=== PATIENT | female | born 1935 | race Asian ===

== ENCOUNTER 2017-11-12 07:47 | Observation (INO) | payer MEDICARE ==
[~2017-11-12] VITALS: Ht 149.9 cm; Wt 65.8 kg
[~2017-11-12 07:47] MED LIST: AMLODIPINE BESY10 MG PO; ARICEPT5 MG PO; ASPIR 8181 MG PO; ATORVASTATIN CA20 MG PO; CALCIUM 500+D1 EACH; GLUCOPHAGE850 MG PO; HUMALOG MI100 UNIT/2 SQ; LEVOTHYROXINE75 MCG PO; LEXAPRO10 MG PO; LISINOPRIL10 MG PO; PLAVIX75 MG PO
[2017-11-12] MEDS ORDERED: SODIUM CHLORIDE 0.9% 1000ML 1,000 ML IV STA ×2 (08:29→10:48)
[2017-11-12 08:58] LABS: BASOPHILS % 0.5 % (0.0-1.0); EOSINOPHILS # (AUTO) 0.1 (0.0-0.4); EOSINOPHILS % 2.2 % (0.0-6.0); HEMATOCRIT 29.8 % (34.2-44.1); HEMOGLOBIN 9.8 g/dL (12.0-16.0); LYMPHOCYTES # (AUTO) 2.6 (1.0-3.2); MEAN CORPUSCULAR HEMOGLOBIN 29.4 pg (28-32); MEAN CORPUSCULAR HGB CONC 32.9 g/dL (31-35); MEAN CORPUSCULAR VOLUME 89.5 fL (81-99); MONOCYTES # (AUTO) 0.5 (0.2-0.8); NEUTROPHILS # (AUTO) 3.2 (2.1-6.9); PLATELET COUNT 199 x10e3/uL (140-360); RED BLOOD COUNT 3.33 x10e6/uL (3.6-5.1); RED CELL DISTRIBUTION WIDTH 13.4 % (11.7-14.4)
[2017-11-12 09:16] LABS: ALBUMIN 3.4 g/dL (3.5-5.0); ANION GAP 11.9 mmol/L (8-16); CALCIUM 9.1 mg/dL (8.4-10.2); CREATININE, SERUM 0.93 mg/dL (0.57-1.11); POTASSIUM 3.9 mmol/L (3.5-5.1)
[2017-11-12 09:23] LABS: CREATINE KINASE MB 1.1 ng/mL (0.00-5.00); TROPONIN I 0.032 ng/mL (0-0.300)
--- NOTE | 2017-11-12 10:09 | Diagnostic Imaging Report ---
History:Left-sided weakness Comparison studies:MRI brain, 12/27/2016 Technique: Axial images were obtained from the skull base to the vertex. Coronal and sagittal images reconstructed from the axial data. Intravenous contrast: None Findings: Scalp/skull: No abnormalities. Extra-axial spaces: No masses. No fluid collections. Brain sulci: Mildly prominent. Ventricles: Mild compensatory dilatation. No hydrocephalus. Parenchyma: A few scattered hypodensities in the supratentorial white matter are small vessel ischemic changes. No masses, hemorrhage, or acute or chronic cortical vascular insults. Sellar/suprasellar region: No abnormalities. Craniocervical junction: Patent foramen magnum. No Chiari one malformation. Incidental findings: Atherosclerotic calcifications in the carotid siphons . Impression: No acute abnormalities. No changes when compared to the brain MRI on 12/27/2016. Chronic findings: 1. Mild generalized volume loss. 2. Mild supratentorial white matter small vessel ischemic changes. Preliminary report provided by Dr. Hernandez on 11/09/2017 at 1050 hours. Signed by: Dr. Edmundo Mckeon M.D. on 11/12/2017 12:06 PM
[2017-11-12 10:50] LABS: BILIRUBIN,URINE NEGATIVE (NEGATIVE); KETONES,URINE NEGATIVE (NEGATIVE); LEUKOCYTE ESTERASE ,URINE 2+ (NEGATIVE); NITRITE,URINE NEGATIVE (NEGATIVE); URINE UROBILINOGEN 0.2 mg/dL (0.2 - 1)
[2017-11-12 10:52] LABS: CLARITY,URINE HAZY (CLEAR); COLOR,URINE YELLOW (YELLOW); PROTEIN,URINE DIPSTICK 2+ (NEGATIVE)
[2017-11-12 11:01] LABS: BACTERIA,URINE MANY /HPF; WBC,URINE (MAN) 21-50 /HPF (0-5)
[2017-11-12 11:02] LABS: EPITHELIAL CELLS,URINE MODERATE /LPF; MUCUS,URINE MODERATE (RARE)
[2017-11-12] MEDS ORDERED: DEXTROSE 50% SYRINGE 50 ML IV PRN (11:45)
[2017-11-12] MEDS ORDERED: ONDANSETRON HCL INJ 2 MG/ML VIAL IV PRN (11:45)
[2017-11-12] MEDS ORDERED: CEFTRIAXONE SOD 1 GM VIAL IV ONE (12:00)
[2017-11-12 14:52] VITALS: BP 134/62
[2017-11-12] MEDS: SODIUM CHLORIDE 0.9% 1000ML 1,000 ML IV SCH ×2 (15:00→23:51)
[2017-11-12] MEDS ORDERED: ASPIR 8181 MG PO (15:03)
[2017-11-12] MEDS ORDERED: LISINOPRIL10 MG PO (15:03)
[2017-11-12] MEDS ORDERED: [UNRECOGNIZED DRUG - OTHER] PO (15:03)
[2017-11-12 15:33] VITALS: BP_SYST 134; BP_SYST 145; BP_DIAS 62; BP_DIAS 65
[2017-11-12 15:36] VITALS: BP 145/65
[2017-11-12] MEDS: INSULIN REGULAR, HUMAN 100 UNIT/1 ML 3ML VIAL SQ SCH ×2 (15:57→21:00)
[2017-11-12 20:00] VITALS: BP 151/74
[2017-11-13] VITALS: BP 179/75
[2017-11-13 04:00] VITALS: BP 144/64
[2017-11-13] MEDS: LEVOTHYROXINE SODIUM 75 MCG TAB PO SCH (09:40)
[2017-11-13] MEDS: ESCITALOPRAM OXALATE 10 MG TAB PO SCH (09:52)
[2017-11-13] MEDS: AMLODIPINE BESYLATE 10 MG TAB PO SCH (09:52)
[2017-11-13] MEDS: CLOPIDOGREL BISULFATE 75 MG TAB PO SCH (09:52)
[2017-11-13] MEDS: ASPIRIN 81 MG CHEW TAB PO SCH (09:52)
[2017-11-13] MEDS: LISINOPRIL 10 MG TAB PO SCH (09:52)
[2017-11-13] MEDS: INSULIN LISPRO 100 UNIT/1 ML 3ML VIAL SQ SCH ×2 (09:53→12:00)
[2017-11-13] MEDS: INSULIN REGULAR, HUMAN 100 UNIT/1 ML 3ML VIAL SQ SCH ×4 (09:53→21:00)
--- NOTE | 2017-11-13 11:25 | History and Physical ---
PRIMARY CARE PHYSICIAN: Dr. Hedrick. CHIEF COMPLAINT: Low blood sugar. HISTORY OF PRESENT ILLNESS: An 82-year-old woman with a history of diabetes mellitus, now developing low blood sugar in the 40s and feeling fatigued with some vomiting and abdominal discomfort prompting a visit to the hospital. Here is found to have a glucose is the 74 range. She is admitted for further evaluation and management. She is also found to have a urinary tract infection. Antibiotics have been started. PAST MEDICAL HISTORY: Hypertension, diabetes mellitus type 2, stroke with residual left-sided weakness, urinary tract infection, coronary artery disease status post more than 1 stent more than 10 years ago, breast cancer status post bilateral mastectomy, hypothyroidism, depression and dementia. PAST SURGICAL HISTORY: Bilateral mastectomy, coronary stent placement, knee replacement. ALLERGIES: PER THE ELECTRONIC MEDICAL RECORDS. FAMILY HISTORY/SOCIAL HISTORY: Patient is . She has 4 children. No alcohol, illicit drugs or cigarettes. MEDICATIONS: Per the electronic medical records. Reviewed. REVIEW OF SYSTEMS: Denies any dizziness, chest pain. VITAL SIGNS: Have been reviewed. PHYSICAL EXAMINATION GENERAL APPEARANCE: A tired-appearing woman resting in bed. HEENT: Anicteric. Pupils responsive to light. No oral lesions. CARDIOVASCULAR: Normal S1/S2. LUNGS: Moderate breath sounds. ABDOMEN: Soft, nontender, nondistended. EXTREMITIES: No edema or calf tenderness. NEUROLOGICALLY: Alert and oriented x3. Moving all extremities. SKIN: Dry. LABS: Reviewed. ASSESSMENT AND PLAN: This is an 82-year-old woman. 1. Urinary tract infection. Continue ceftriaxone. Follow up cultures. 2. Normocytic anemia. Obtain anemia panel. 3. Hypothyroidism. Check TSH. Continue Synthroid. 4. Diabetes mellitus type 2. Obtain hemoglobin A1c and lipid panel. 5. Fatigue. Likely due to the urinary tract infection. Will reassess after treatment. 6. Dementia. Restart home medication. 7. Depression. Continue Lexapro. 8. Prophylaxis. Will use SCDs and Pepcid. 9. Disposition. Physical therapy consultation. Follow up cultures. Job#: [id number]
[2017-11-13] MEDS ORDERED: DEXTROSE 50% SYRINGE 50 ML IV ONE (11:59)
[2017-11-13] MEDS ORDERED: WATER STERILE 10 ML VIAL IV SCH (12:00)
[2017-11-13] MEDS ORDERED: CEFTRIAXONE SOD 1 GM VIAL IV SCH (12:00)
[2017-11-13] MEDS: SODIUM CHLORIDE 0.9% 1000ML 1,000 ML IV SCH (16:00)
[2017-11-13 16:37] VITALS: BP 138/62
[2017-11-13 20:00] VITALS: BP 173/74
[2017-11-13] MEDS ORDERED: LORAZEPAM 0.5 MG TAB PO PRN (20:45)
[2017-11-13] MEDS ORDERED: TRAZODONE HCL 50 MG TAB PO SCH (21:00)
[2017-11-13] MEDS ORDERED: DONEPEZIL HCL 5 MG TAB PO SCH (21:00)
[2017-11-13] MEDS ORDERED: MIRTAZAPINE 15 MG TAB PO SCH (21:00)
[2017-11-13] MEDS ORDERED: ATORVASTATIN 20 MG TAB PO SCH (21:00)
[2017-11-14] VITALS: BP 152/67
[2017-11-14] MEDS: SODIUM CHLORIDE 0.9% 1000ML 1,000 ML IV SCH (02:02)
[2017-11-14 04:00] VITALS: BP 156/65
[2017-11-14] MEDS ORDERED: KEFLEX500 MG PO (06:26)
[2017-11-14 07:27] VITALS: BP 177/81
[2017-11-14] MEDS: INSULIN REGULAR, HUMAN 100 UNIT/1 ML 3ML VIAL SQ SCH (07:30)
[2017-11-14 07:35] LABS: BASOPHILS % 0.5 % (0.0-1.0); EOSINOPHILS # (AUTO) 0.2 (0.0-0.4); EOSINOPHILS % 2.7 % (0.0-6.0); HEMOGLOBIN 10.4 g/dL (12.0-16.0); LYMPHOCYTES # (AUTO) 2.6 (1.0-3.2); LYMPHOCYTES % 41.2 % (18.0-39.1); MEAN CORPUSCULAR HEMOGLOBIN 28.7 pg (28-32); MEAN CORPUSCULAR HGB CONC 32.5 g/dL (31-35); MEAN CORPUSCULAR VOLUME 88.2 fL (81-99); MONOCYTES # (AUTO) 0.5 (0.2-0.8); MONOCYTES % 7.4 % (4.4-11.3); NEUTROPHILS # (AUTO) 3.1 (2.1-6.9); NEUTROPHILS % 47.7 % (38.7-80.0); PLATELET COUNT 198 x10e3/uL (140-360); RED BLOOD COUNT 3.63 x10e6/uL (3.6-5.1); RED CELL DISTRIBUTION WIDTH 13.4 % (11.7-14.4)
[2017-11-14 08:11] LABS: FERRITIN 62.9 ng/mL (4.63-204.00)
[2017-11-14] MEDS: ASPIRIN 81 MG CHEW TAB PO SCH (08:23)
[2017-11-14] MEDS: LEVOTHYROXINE SODIUM 75 MCG TAB PO SCH (08:23)
[2017-11-14] MEDS: LISINOPRIL 10 MG TAB PO SCH (08:23)
[2017-11-14] MEDS: AMLODIPINE BESYLATE 10 MG TAB PO SCH (08:23)
[2017-11-14] MEDS: ESCITALOPRAM OXALATE 10 MG TAB PO SCH (08:23)
[2017-11-14] MEDS: CLOPIDOGREL BISULFATE 75 MG TAB PO SCH (08:23)
[2017-11-14 08:24] LABS: CREATININE, SERUM 0.95 mg/dL (0.57-1.11)
[2017-11-14 10:51] LABS: CHOL/HDL RATIO 5.6 (3.0-3.6)
[2017-11-14 11:11] LABS: THYROID STIMULATING HORMONE 4.06 uIU/mL (0.350-4.940)
== END 2017-11-14 10:20 | disposition home or self-care (01) ==
LOC: ER 07:47 → ERHOLD 11:42 → IMCU 13:02
PROVIDERS: ADMIT Internal Medicine; ATTEND Internal Medicine
DX: E11.649 Type 2 diabetes mellitus with hypoglycemia without coma (principal); N39.0 Urinary tract infection, site not specified; R55 Syncope and collapse; R53.1 Weakness; E11.65 Type 2 diabetes mellitus with hyperglycemia; R31.9 Hematuria, unspecified; I69.354 Hemiplegia and hemiparesis following cerebral infarction affecting left non-dominant side; D64.9 Anemia, unspecified; E03.9 Hypothyroidism, unspecified; F03.90 Unspecified dementia, unspecified severity, without behavioral disturbance, psychotic disturbance, mood disturbance, and anxiety; F32.9 Major depressive disorder, single episode, unspecified; Z85.3 Personal history of malignant neoplasm of breast
CPT/HCPCS: 36415 ×3; 70450; 80048; 80053; 80061; 81001; 82550; 82553; 82607; 82728; 82948 ×3; 83036; 83540; 84443; 84466; 84484; 85025 ×2; 87086; 87186; 93005 ×2; 96360; 99284; G0378 ×3; J0696 ×2; J7030 ×2; J7799